=== PATIENT | male | born 1995 | race Hispanic/Latino ===

== ENCOUNTER 2025-02-15 11:18 | Emergency (ER) | payer BC ==
[~2025-02-15] VITALS: Ht 170.2 cm; Wt 68.0 kg
[2025-02-15 11:38] LABS: IMMATURE GRANULOCYTE ABSOLUTE 0.02 K/uL (0-1); NUCLEATED RED BLOOD CELLS 0.0 % (0.0-0.19); PLATELET COUNT (AUTO) 261 K/uL (130-400); RED BLOOD CELL COUNT(AUTO) 5.50 MIL/uL (4.50-6.20); RED CELL DISTRIBUTION WIDTH 11.7 % (11.0-15.5); WHITE BLOOD COUNT (AUTO) 5.8 K/uL (4.8-10.8)
[2025-02-15] MEDS: 0.9%NACL 1000ML 1,000 ML IV ONE (11:43)
[2025-02-15 11:45] LABS: CREATININE 0.8 mg/dL (0.5-1.3); GLOMERULAR FILTR. RATE CALC 123.0 mL/min (>90); GLUCOSE,RANDOM 144.0 mg/dL (70-105); SODIUM SERUM 142.0 mmol/L (136-145); UREA NITROGEN, BLOOD 13.0 mg/dL (7-18)
[2025-02-15 13:21] LABS: APPEARANCE,URINE CLEAR (CLEAR); GLUCOSE, URINE (UA) NEGATIVE (NEGATIVE); LEUKOCYTE ESTERASE ,URINE NEGATIVE Leu/uL (NEGATIVE); NITRATE,URINE NEGATIVE (NEGATIVE); OCCULT BLOOD,URINE NEGATIVE (NEGATIVE)
[2025-02-15 13:27] LABS: ADD UA MICROSCOPIC NO
[2025-02-15] MEDS ORDERED: DOXY100T2 PO (14:09)
--- NOTE | 2025-02-15 14:10 | ERN ---
General Chief Complaint: Penis Problem Stated Complaint: DIZZY Time Seen by MD: 11:25 Time Seen by Midlevel: 11:25 Source: patient History of Present Illness Initial Comments Patient is a 30-year-old male presenting to the emergency department with multiple complaints. He reports feeling dizzy but also states he has penile discharge that started about 2-3 days ago. He is currently sexually active in his concern for a sexually transmitted disease Allergies: Coded Allergies: No Known Drug Allergies (Unverified Allergy, Unknown, 02/15/25) Past Medical History Past Medical History: No Pertinent History Past Surgical History: None ROS Dictation CONSTITUTIONAL: Negative except for HPI HEAD/FACE: Negative except for HPI EENT: Negative except for HPI RESPIRATORY: Negative except for HPI GASTROINTESTINAL/ABDOMINAL: Negative except for HPI GENITOURINARY: Negative except for HPI MUSCULOSKELETAL: Negative except for HPI INTEGUMENTARY: Negative except for HPI NEUROLOGICAL/PSYCH: Negative except for HPI HEMATOLOGIC/LYMPHATIC: Negative except for HPI All Systems Negative, Except as noted above. 13 point review of systems assessed and all negative except for above. Physical Exam Physical Exam Dictation Vital Signs reviewed General Appearance: Alert, oriented x 3, no acute distress, well developed, nourished. Head and Face: non-traumatic. Eyes: PERRL, pink conjunctivas, eyelid no trauma, anterior chamber with arcus senilis. Ears: Pinnas intact and no signs of trauma or erythema ear canals clear and no discharge TM no erythema Nose: No discharge, no bleeding. Oropharynx: Mouth normal, tongue pink, pharynx clear,no erythema, tonsils no exudates, no abscesses noted, mucous membrane moist Neck: Supple, non-tender, no thyromegaly, no masses, no JVD, no bruits Breast:Deferred Chest:No tenderness, no crepitus, no paradoxical movement, no retractions Lungs:Clear, well-ventilated, symmetric, no rales, no wheezing, no rhonchi, no stridor, good breath sounds bilaterally Heart: Regular rate, regular rhythm, no murmur, no gallops Vascular: no peripheral edema, Abdomen: Soft, positive bowel sounds, nondistended, no guarding, nontender, no rebound, no masses no hepatomegaly, no splenomegaly, no Cadena's sign, no hernias. Rectal: Deferred Genital: Deferred Neurological: Normal speech, motor function intact, sensory function intact Musculoskeletal: Neck nontender, full range of motion, back nontender, full range of motion, Extremities: nontender, full range of motion Skin: Color pink, dry, no turgor, no rash, no lacerations, no abrasions, no contusions. Lymphatic: Deferred Results Laboratory and Microbiology Lab and Micro Result Laboratory Tests Test 02/15/25 11:25 02/15/25 12:30 White Blood Count 5.8 K/uL (4.8-10.8) Red Blood Count 5.50 MIL/uL (4.50-6.20) Hemoglobin 17.3 g/dL (14.0-18.0) Hematocrit 48.3 % (42-54) Mean Corpuscular Volume 87.8 fL (79-99) Mean Corpuscular Hemoglobin 31.5 pg (27.0-33.0) Mean Corpuscular Hemoglobin Concent 35.8 g/dL (32.0-36.0) Red Cell Distribution Width 11.7 % (11.0-15.5) Platelet Count 261 K/uL (130-400) Mean Platelet Volume 9.4 fL (7.5-10.5) Immature Granulocyte % (Auto) 0.3 % (0-1) Neutrophils (%) (Auto) 63.8 % (40.0-77.0) Lymphocytes (%) (Auto) 29.9 % (21.0-51.0) Monocytes (%) (Auto) 5.2 % (3.0-13.0) Eosinophils (%) (Auto) 0.5 % (0.0-8.0) Basophils (%) (Auto) 0.3 % (0.0-5.0) Neutrophils # (Auto) 3.7 K/uL (1.8-7.7) Lymphocytes # (Auto) 1.7 K/uL (1.0-4.8) Monocytes # (Auto) 0.3 K/uL (0.1-1.0) Eosinophils # (Auto) 0.03 K/uL (0.00-0.70) Basophils # (Auto) 0.02 K/uL (0.00-0.20) Absolute Immature Granulocyte (auto 0.02 K/uL (0-1) Nucleated Red Blood Cells 0.0 % (0.0-0.19) Sodium Level 142 mmol/L (136-145) Potassium Level 4.0 mmol/L (3.5-5.1) Chloride Level 105 mmol/L (101-111) Carbon Dioxide Level 28 mmol/L (21-32) Blood Urea Nitrogen 13 mg/dL (7-18) Creatinine 0.8 mg/dL (0.5-1.3) Glomerular Filtration Rate Calc 123 mL/min (>90) Random Glucose 144 mg/dL (70-105) H Total Calcium 8.9 mg/dL (8.5-10.1) Urine Color COLORLESS (YELLOW) Urine Appearance CLEAR (CLEAR) Urine pH 7.0 (5.0-8.0) Urine Specific [place] 1.006 (1.001-1.031) Urine Protein NEGATIVE mg/dL (NEGATIVE) Urine Glucose (UA) NEGATIVE mg/dL (NEGATIVE) Urine Ketones NEGATIVE mg/dL (NEGATIVE) Urine Occult Blood NEGATIVE (NEGATIVE) Urine Nitrate NEGATIVE (NEGATIVE) Urine Bilirubin NEGATIVE mg/dL (NEGATIVE) Urine Urobilinogen 0.2 mg/dL (0.2-1.0) Urine Leukocyte Esterase NEGATIVE Elyssa/uL Labs Reviewed?: Yes MDM MDM: Differential diagnosis: Dehydration, electrolyte abnormality, possible exposure to STD There are no social concerns with this patient. Prescription drug management Prescriptions will include: Medical management and examination interpretation discussions were had by me with other qualified healthcare professionals as indicated for the patient's care. ED Course Orders Procedure Category Date Status Time Cbc With Differential LAB 02/15/25 Complete 11:25 Basic Metabolic Panel LAB 02/15/25 Complete 11:25 Urinalysis Profile LAB 02/15/25 Complete 11:25 Chlamydia & Gc Pcr JAIDA 02/15/25 In Process 11:25 Ceftriaxone 1g Vial PHA 02/15/25 Complete (Rocephine 1g Inj) 11:30 0.9%Nacl 1000ml (Ns PHA 02/15/25 Complete 1000ml) 11:30 Current Medications Medications (Trade) Dose Ordered Sig/Julissa Route PRN Reason Start Time Stop Time Status Last Admin Dose Admin Ceftriaxone Sodium (ROCEphine 1G INJ) 1 gm ONCE ONCE IVPB 02/15/25 11:30 02/15/25 11:31 DC 02/15/25 11:43 Sodium Chloride 1,000 ml @ 0 mls/hr ONCE ONCE IV 02/15/25 11:30 02/15/25 11:31 DC 02/15/25 11:43 Vital Signs Date Time Temp Pulse Resp B/P (MAP) Pulse Ox O2 Delivery O2 Flow Rate FiO2 02/15/25 12:36 98.2 94 18 127/74 98 Room Air* 0 21 02/15/25 11:27 98.2 111 18 130/82 98 Room Air* 0 21 02/15/25 11:22 98.2 111 18 130/82 98 DX & DISP Disposition: Discharge Departure Impression: Primary Impression: Possible exposure to STD Condition: Stable Scripts Doxycycline Hyclate (Doxycycline Hyclate) 100 Mg Tablet 1 TAB PO BID for 10 Days, #20 TAB 0 Refills Prov: TIAN WILKES 02/15/25 Referrals: SELF,REFERRAL (PCP) Time of Disposition: 14:08 I have reviewed the case, and I agree with, Diagnosis and Plan I performed the substantive portion of the visit. I have reviewed and personally made and approve the management plan that is documented in the note by myself or the DARIEL. I acknowledge for responsibility for the patient's management plan. TIAN WILKES Feb 15, 2025 14:10
[2025-02-15 14:30] VITALS: BP 124/78; PULSE 88; RESP 18; TEMP 98.2; O2SAT 98
== END 2025-02-15 14:31 | disposition home or self-care (01) ==
LOC: EDH 11:18
DX: R42 Dizziness and giddiness (principal); R36.9 Urethral discharge, unspecified; Z20.2 Contact with and (suspected) exposure to infections with a predominantly sexual mode of transmission
CPT/HCPCS: 99284; 96374; 80048; 85025; 87491; 87591; 81003; 36415; J7030; J0696